=== PATIENT | female | born 1990 | race Caucasian/White ===

== ENCOUNTER → 2024-12-25 09:55 | Outpatient (REF) | payer OTHER, SELFPAY | LOC: MRI 3T 09:55 | PROVIDERS: ATTENDING PHYSICIAN Surgery; FAMILY PHYSICIAN Internal Medicine | DX: R10.12 Left upper quadrant pain (principal) | CPT/HCPCS: 74181 ==

== ENCOUNTER → 2025-10-05 14:15 | Outpatient (REF) | payer OTHER, SELFPAY | LOC: HWRAD 14:15 | PROVIDERS: ATTENDING PHYSICIAN Surgery; FAMILY PHYSICIAN Internal Medicine | DX: R10.12 Left upper quadrant pain (principal); R19.02 Left upper quadrant abdominal swelling, mass and lump | CPT/HCPCS: 76700 ==